=== PATIENT | female | born 1995 ===

== ENCOUNTER → 2021-03-06 | Outpatient (CLI) | payer BC ==
[~2021-03-06] MED LIST: APRI 0.15 MG-0.1 TAB PO; BIRTH CONTROL; HUMALOG PUMP; IBU800 M1 PO; INSULIN PUMP; LEVEMIR100 U/ML SQ; NOVOLIN N100 UNIT/1 SQ; NOVOLOG 100U100 U/M1 SQ; PERCOCET 325 MG1 TA2 PO; PRENATAL TABLET PO; ZOFRAN ODT4 MG PO
== END ==
LOC: ZCOL.LAB 08:00
DX: Z20.822 Contact with and (suspected) exposure to COVID-19 (principal)

== ENCOUNTER 2021-03-10 07:00 | Inpatient (IN) | payer BC, OTHER ==
[2021-03-10] VITALS (17 sets, daily range): BP systolic 107–139; BP diastolic 56–81; PULSE 69–109; TEMP 98.2–98.7
[~2021-03-10] VITALS: Ht 160 cm; Wt 83.4 kg
[~2021-03-10 07:00] MED LIST changes: -IBU800 M1 PO; -LEVEMIR100 U/ML SQ; -NOVOLIN N100 UNIT/1 SQ; -NOVOLOG 100U100 U/M1 SQ; -PERCOCET 325 MG1 TA2 PO; -PRENATAL TABLET PO
--- NOTE | 2021-03-10 07:15 | NUR ---
Patient ambulates to 209 with spouse, changed into gown, FHR/TOCO monitors applied and discussed. Patient denies any regular contractions/leaking of fluid/vaginal bleeding/decreased movement. Patient here for prime breech . Plan of care discussed. 0730: IV started in left upper arm, blood obtained and to lab, NS infusing. Questions answered and plan of surgery discussed. Assessment completed/consents done/ packet given.
--- NOTE | 2021-03-10 07:30 | NUR ---
Blood sugar per self with finger prick-170. Dr. Lynn and Dennis [employer] ART[employer]OTOGR[employer] upated.
[2021-03-10] MEDS ORDERED: LEVEMIR100 U/ML SQ (07:38)
[2021-03-10] MEDS ORDERED: NOVOLIN N100 UNIT/1 SQ (07:38)
[2021-03-10] MEDS ORDERED: PRENATAL TABLET PO (07:39)
[2021-03-10 08:19] LABS: BASO % 0.3 % (0.0-2.0); EOS % 0.3 % (0-4.0); GRAN # 7.2 (1.4-6.5); GRAN % 69.6 % (42.2-75.2); HEMATOCRIT 41.6 % (37.0-47.0); HEMOGLOBIN 14.4 g/dl (12.5-16.0); LYMPH # 2.1 (1.2-3.4); LYMPH % 20.6 % (20.0-51.0); MEAN CELL VOLUME 91 fl (80.0-100.0); MEAN CORPUSCULAR HEMOGLOBIN 32 pg (27.0-31.0); MEAN CORPUSCULAR HGB CONC 35 g/dl (33.0-37.0); MEAN PLATELET VOLUME 11.1 fl (7.4-10.4); MONO # 0.9 (0.1-0.6); MONO % 8.6 % (1.7-9.3); PLATELET COUNT 148 K/mm3 (130-400); RED BLOOD COUNT 4.55 M/mm3 (4.10-5.30); REDCELL DISTRIBUTION WIDTH-CV 11.9 % (11.5-14.5)
--- NOTE | 2021-03-10 10:09 | NUR ---
Blood sugar per our monitor-150.
--- NOTE | 2021-03-10 11:10 | NUR ---
Blood sugar per patient continues attached monitor-248. Patient gives self 7units of insulin and will eat breakfast at this time. Will continue to monitor.
--- NOTE | 2021-03-10 12:20 | NUR ---
Blood sugar-[address] per [address] monitor[address] Lynn updated and order for hospitalist consult at this time. Plan of care updated to patient. 1600: Blood sugar-217 per patients continuous monitor. Patient gives 12units of own novalog at this time per carb counting/sliding scale. 1720: Blood sugar-211 per continuous monitor. Patient recommended to check with finger stick- blood sugar-191 with glucose meter.
--- NOTE | 2021-03-10 13:15 | NUR ---
Dr. Khan at bedside discussing plan with patient. Orders for patient to chekc blood sugar prior to each meal 3x per day. Dose insulin per carb count that patient did prior to as well as sliding scale for the next 24 hours. No long acting insulin to be given.
--- NOTE | 2021-03-10 20:50 | NUR ---
2049- PT REPORTS BLOOD SUGAR OF 84, REQUESTS JUICE AND PEANUT BUTTER CAUSE SHE FEELS LIKE IT IS GETTING LOW. SNACKS PROVIDED.
[2021-03-11 00:15] VITALS: BP 134/62; PULSE 82; TEMP 98.1
[2021-03-11 05:15] VITALS: BP 105/60; PULSE 83; TEMP 97.9
--- NOTE | 2021-03-11 07:25 | NUR ---
Patient report feeling very nauseated. 0725: Blood sugar per patient own mete/finger prick-278 and patient given 8 units of insulin. 0755: Blood sugar-258 and patient dosing 13units per carb count. 0915: Hospitalist at nurses station and updated on blood sugar/inuslin managment. 0920: Hospitalist at bedside discussing plan with patient. Blood sugar per finger prick-299 at this time. Hospitalist recommends giving 10 units of long lasting insuling now and BID. Physician educating patient about low carb diet is needed and to just dose per sliding scale. 0945: Patient nauseated and vomits 400ml. Resting in bed. 1020: Patient feeling better- blood sugar 283 per finger prick.
[2021-03-11 07:57] LABS: BASO % 0.1 % (0.0-2.0); EOS % 0.2 % (0-4.0); GRAN # 8.6 (1.4-6.5); GRAN % 75.7 % (42.2-75.2); LYMPH # 1.7 (1.2-3.4); LYMPH % 14.9 % (20.0-51.0); MEAN CELL VOLUME 93 fl (80.0-100.0); MEAN CORPUSCULAR HGB CONC 34 g/dl (33.0-37.0); MONO % 8.7 % (1.7-9.3); PLATELET COUNT 137 K/mm3 (130-400); RED BLOOD COUNT 3.75 M/mm3 (4.10-5.30)
[2021-03-11 08:00] LABS: HEMOGLOBIN 11.9 g/dl (12.5-16.0); MEAN CORPUSCULAR HEMOGLOBIN 32 pg (27.0-31.0)
[2021-03-11 08:45] VITALS: BP 96/72; PULSE 98; TEMP 98.3
--- NOTE | 2021-03-11 11:15 | NUR ---
1115: This RN at bedside and patient educated that Hospitalist was updated and she wants to treat high blood sugar per sliding scale at this time. Patient states "I checked my sugar at 1045 and was feeling nauseated and went ahead and gave myself 4 units". This RN educates patient that she needs to let me know her symptoms and what her blood sugar is prior to dosing insulin, in order to stay on track with the sliding scale the physician ordered. Spouse states "She has had this all of her life and she was feeling sick and wanted to take care of the high blood sugar, we didnt think we should give insulin without letting you know but went ahead and did it". Patient and Spouse educated that we are just trying to care for you and figure out the best actions to take in order to get blood sugars within normal limits. Patient and spouse verbalize understanding of plan of care. Blood sugar per finger prick-218 at this time. 1145: Blood sugar per finger prick-204 and 6 units of insulin given per sliding scale. 1200: Hospitalist updated and notified of recent blood sugars and insulin given. See Physician notifcation.
--- NOTE | 2021-03-11 12:10 | NUR ---
Patient states "Dr. Khan says that I will check blood sugar prior to meals and dose with insulin after finishing food to dose for amount of carbs" Patient and spouse are relieved to have discussed plan with physician again and agree to plan of care. Will continue to monitor blood sugars prior to meals or symptomatic
--- NOTE | 2021-03-11 13:39 | NUR ---
Patient checks own blood sugar per finger prick-80 prior to meal and no inuslin needed
--- NOTE | 2021-03-11 15:00 | NUR ---
Patient states she feels symptoms of low blood sugar. Continuous monitor- 68 and finger prick-72 and patient eating annie cracker at this time.
[2021-03-11 16:00] VITALS: BP 124/68; PULSE 88; TEMP 97.8
--- NOTE | 2021-03-11 16:00 | NUR ---
1600: Patient still feeling low blood sugar symptoms, blood sugar at this time-58 and patient drinking some apple juice.
--- NOTE | 2021-03-11 17:40 | NUR ---
Blood sugar per monitor-finger prick-56 and patient eating jello at this time.
[2021-03-11 20:30] VITALS: BP 126/71; PULSE 92; TEMP 98.2
--- NOTE | 2021-03-11 22:10 | NUR ---
Blood sugar 199 based on patients continuous monitor. 10 units of levemir subcutaneous given at this time.
--- NOTE | 2021-03-11 23:30 | NUR ---
Pt calls out reporting she feels nauseous and blood sugar is 234 on continuous blood sugar monitoring. Pt wanting to dose per sliding scale. This nurse spoke with PA coronary clinical specialist, see physician notification. 6 units of novolog given at 2335 per sliding scale in left leg.
--- NOTE | 2021-03-12 01:05 | NUR ---
Pt reports feeling better, no longer nauseous. Blood sugar 210 with patients own glucometer.
--- NOTE | 2021-03-12 03:30 | NUR ---
Blood sugar 133 using patients own glucometer. No insulin at this time.
[2021-03-12 06:45] VITALS: BP 132/68; PULSE 90; TEMP 98
--- NOTE | 2021-03-12 07:00 | NUR ---
Rests in bed, alert. Blood sugar checked, 104 fasting. Encouraged to order breakfast.
[2021-03-12 07:39] LABS: CALCIUM 8.4 mg/dL (8.4-10.2); CREATININE, serum 0.66 (0.52-1.25); POTASSIUM 3.9 mmol/L (3.4-5.0)
--- NOTE | 2021-03-12 08:05 | NUR ---
Accu check done, reports blood sugar 114. States going to give 3 units of levimir.
[2021-03-12 08:36] LABS: BASO % 0.2 % (0.0-2.0); EOS % 0.3 % (0-4.0); GRAN # 8.7 (1.4-6.5); GRAN % 78.5 % (42.2-75.2); HEMOGLOBIN 11.8 g/dl (12.5-16.0); LYMPH # 1.5 (1.2-3.4); LYMPH % 13.4 % (20.0-51.0); MEAN CELL VOLUME 95 fl (80.0-100.0); MEAN CORPUSCULAR HEMOGLOBIN 31 pg (27.0-31.0); MEAN CORPUSCULAR HGB CONC 33 g/dl (33.0-37.0); MEAN PLATELET VOLUME 10.2 fl (7.4-10.4); MONO # 0.8 (0.1-0.6); MONO % 7.2 % (1.7-9.3); PLATELET COUNT 156 K/mm3 (130-400); RED BLOOD COUNT 3.78 M/mm3 (4.10-5.30)
[2021-03-12 08:40] LABS: HEMATOCRIT 35.9 % (37.0-47.0)
--- NOTE | 2021-03-12 10:09 | NUR ---
Percocet 5/325 mg two given per request and as ordered.
--- NOTE | 2021-03-12 10:12 | NUR ---
Initial visit; Parents thanked Acoustic Engineer for offering congratulations and God's blessings for the of their daughter. Acoustic Engineer thanked family for choosing [facility].
--- NOTE | 2021-03-12 11:30 | NUR ---
Blood sugar checked 153. States going to order food.
[2021-03-12] MEDS ORDERED: LEVEMIR100 U/ML SQ ×4 (12:26→12:31)
[2021-03-12] MEDS ORDERED: NOVOLOG 100U100 U/M1 SQ (12:27)
[2021-03-12] MEDS ORDERED: PERCOCET 325 MG1 TA2 PO (13:45)
[2021-03-12] MEDS ORDERED: IBU800 M1 PO (13:45)
--- NOTE | 2021-03-12 16:03 | NUR ---
DISCHARGE INFORMATION PROVIDED. INSULIN PRESCRIPTION AND SLIDING SCALE TREATMENT PROVIDED TO PATIENT. PAIN MEDICATIONS SENT TO PHARMACY. MOTHER REQUESTING MOTRIN AT THIS TIME. FATHER FEEDING INFANT BOTTLE. WILL NOTIFY NURSING STAFF WHEN READY TO HAVE CARSEAT STRAPS CHECKED.
== END 2021-03-12 16:25 | disposition home or self-care (01) | DRG 786 ==
LOC: OB 07:00
PROVIDERS: Internal Medicine; ADMIT Student in an Organized Health Care Education/Training Program
PROC: 10D00Z1 Extraction of Products of Conception, Low, Open Approach (ICD-10-PCS; principal; 2021-03-10)
DX: O32.8XX0 Maternal care for other malpresentation of fetus, not applicable or unspecified (principal); O24.02 Pre-existing type 1 diabetes mellitus, in childbirth; O99.820 Streptococcus B carrier state complicating pregnancy; O77.0 Labor and delivery complicated by meconium in amniotic fluid; O69.1XX0 Labor and delivery complicated by cord around neck, with compression, not applicable or unspecified; O35.8XX0 Maternal care for other (suspected) fetal abnormality and damage, not applicable or unspecified; Z3A.39 39 weeks gestation of pregnancy; Z37.0 Single live birth; Z79.82 Long term (current) use of aspirin
CPT/HCPCS: 99222; 99231-AI; J0690; J1885; J2370; J2405; J2590; J7030